=== PATIENT | male | born 1995 | race Caucasian/White ===

== ENCOUNTER 2024-07-12 08:05 | Outpatient (CLI) | payer OTHER, SELFPAY ==
--- NOTE | ~2024-07-12 | CT_ITS ---
CT of the Abdomen: Indication: Abdominal pain Technique: 2.5 mm axial scans were obtained through the abdomen following intravenous administration of 100 cc of Omnipaque 350. Dose reduction technique was used on this scan by utilizing automated ex posure control and iterative reconstruction technique. The dose-length product (DLP) was 849.30 mGy-c m. Findings: Scans through the lung bases are unremarkable. The liver, spleen, pancreas, gallbladder, adrenals and kidneys are within normal limits. No evidence of aortic aneurysm. No lymphadenopathy. Visualized bowel loops are unremarkable. No ascites. Impression: No significant abnormalities seen. Reviewed, dictated and finalized at location M. Impression: No significant abnormalities seen.
== END 2024-07-12 08:06 ==
PROVIDERS: PCP Registered Nurse; Visit Provider Registered Nurse
DX: R10.11 Right upper quadrant pain (principal); R19.7 Diarrhea, unspecified
CPT/HCPCS: 74160; Q9967